=== PATIENT | male | born 2000 | race Two or more races ===

== ENCOUNTER 2022-03-30 13:42 | Emergency (ER) | payer OTHER ==
[~2022-03-30] VITALS: Ht 172.7 cm; Wt 58.5 kg
== END 2022-03-30 21:26 | disposition home or self-care (01) ==
LOC: ER 13:42
DX: S00.83XA Contusion of other part of head, initial encounter (principal); V43.52XA Car driver injured in collision with other type car in traffic accident, initial encounter; Y93.9 Activity, unspecified; Y92.9 Unspecified place or not applicable; H57.10 Ocular pain, unspecified eye; R42 Dizziness and giddiness; R06.02 Shortness of breath